=== PATIENT | male | born 1930 | race Caucasian/White ===

== ENCOUNTER 2017-01-25 23:46 | Inpatient (IN) | payer OTHER, MEDICARE ==
[~2017-01-25] VITALS: Ht 188 cm; Wt 112.9 kg
--- NOTE | ~2017-01-25 | CON ---
[facility] 86 [facility] [address] ROOM: [place] [address] LOCATION: GPCU ADMIT DATE: 01/26/2017 Consultation DISCHARGE DATE: 02/01/2017 FAMILY PHYSICIAN: Joby Grossman MD ATTENDING PHYSICIAN: Jose Ramon Ackerman DATE OF CONSULTATION: 01/31/2017 REFERRING PHYSICIAN: LEANDER ZEPEDA (GASTRO) LOCATION: [place] [address]. This is a palliative care referral for patient and family support, POLST form, and goals of care. HISTORY OF PRESENT ILLNESS: This 86-year-old male was admitted on 01/26/2017 with complaints of melena. He currently lives in a intermediate in [place]. He is confused due to his dementia. The patient was seen by GI, Dr. Leander Zepeda. The patient was started on a Protonix drip and given some RBC to bring up his hemoglobin of 6.6. Currently, the patient is not having further bloody stools. He is very hard of hearing and unable to recall history due to his dementia. PAST MEDICAL HISTORY: Benign prostatic hypertrophy; type 2 diabetes; hypertension; dementia; coronary artery disease; COPD, not on oxygen; hypothyroidism. ALLERGIES: TO GABAPENTIN, BACTRIM, DILANTIN, AND NSAIDS, UNKNOWN REACTIONS. SOCIAL HISTORY: Lived with his significant other for 35 years. He has 2 sons. The patient currently resides in [place] [facility]. No current smoking or alcohol use. CURRENT MEDICATIONS: See MAR. REVIEW OF SYSTEMS: A complete review of systems was done and is negative, except as those mentioned in the HPI. PHYSICAL EXAMINATION: VITAL SIGNS: Temp 98.1 axillary, heart rate 89, respirations 18, blood pressure 129/66, O2 saturation 95%. He is 6 feet 2 inches and weighs 250 pounds with a BMI of 32.6. PATIENT'S NAME: [facility] AGE: 86 Y [address] ROOM: [place] [address] LOCATION: GPCU ADMIT DATE: 01/26/2017 Consultation DISCHARGE DATE: 02/01/2017 FAMILY PHYSICIAN: Joby Grossman MD ATTENDING PHYSICIAN: Jose Ramon Ackerman GENERAL: Alert to name, very hard of hearing, in no acute distress. SKIN: Warm and dry. Color pale. HEENT: Head is normocephalic and atraumatic. Sclerae nonicteric. Conjunctivae, pale pink. Mouth is pink and moist without exudate. RESPIRATORY: Clear to auscultation bilaterally. CARDIAC: S1, S2 without murmurs or bruits. 1+ lower extremity edema. No JVD. ABDOMEN: Soft and rounded. Positive bowel tones. No hepatosplenomegaly. NEUROLOGICAL: Grossly intact. MUSCULOSKELETAL: Appropriate range of motions. EXTREMITIES: No cyanosis or deformities. Palliative Performance Scale is 50%, mainly sitting and lying, unable to do extensive work, considerable assistance needed. Intake is normal. Conscious level is drowsy with some confusion. IMPRESSION: Dysphagia, aspiration, weakness, and fatigue. PLAN: 1. Discussion of chronic condition. Met with significant other who is the medical power of c java developer. She has a very good understanding of the patient's current condition, history of COPD, very hard of hearing, blind, sees very little, dysphagia, aspirating on thin liquids, possible aspiration pneumonia, and history of dementia. Discussed goals of care. She states that they have talked about it in the past, and he has told her he would not want aggressive life-sustaining measures, no CPR ventilation or feeding tube or dialysis. Discussed the POLST form (Physician's Order for Life-Sustaining Treatment form) and criteria for hospice with aspiration risk. She states that she would not want him to be rehospitalized for aspiration pneumonia and would consider just oral antibiotics, but if he had a recurrent GI bleed, she would want him to have the bleeding stopped. Currently, she is in favor of having hospice at the intermediate in [place], but she will talk with Diana from [facility] about the hospice potential. We will fax information to the [facility]. POLST form was completed with the patient's wishes in place. We will send form with the patient. I gave a copy to significant other, her name is Patricia Andrade. 2. Code status and advance directive: The patient is a do not resuscitate, copy of advanced directive is on the chart naming his power of c java developer. POLST form was discussed and completed. 3. Recommendations: Dysphagia,slow hand feeding, up in chair and chin tuck. Weakness and fatigue, currently he is having physical therapy done. We will continue to support patient and family. Possible discharge back to intermediate in the morning. PATIENT'S NAME: LARRY IBRAHIM [facility] AGE: 86 Y [address] ROOM: [id number] [place], [place] [address] [facility] ADMIT DATE: 01/26/2017 Consultation DISCHARGE DATE: 02/01/2017 FAMILY PHYSICIAN: Joby Grossman MD ATTENDING PHYSICIAN: Jose Ramon Ackerman Total time was 55 minutes with 45 minutes for counseling and coordination of care. Thank you for allowing me to assist this patient and family. SHELL RAGSDALE NP FOR MD ABBY JAY/sun /[id number] d: 02/02/17 1455 t: 02/09/17 1620, CONSULTATION REPORT
--- NOTE | ~2017-01-25 | CON ---
[facility] 86 Y [address] ROOM: [place] [address] LOCATION: GPCU ADMIT DATE: 01/26/2017 Consultation DISCHARGE DATE: FAMILY PHYSICIAN: Joby Grossman MD ATTENDING PHYSICIAN: MAXIMILIAN SHIPMAN DATE OF CONSULTATION: 01/26/2017 REFERRING PHYSICIAN: LEANDER QUARLES (GASTRO) REASON FOR CONSULTATION: Melena stool. HISTORY OF PRESENT ILLNESS: This is an 86-year-old male, who [facility] jail. He was found to be confused due to delirium from his underlying dementia. The patient is unable to provide any information due to his mental status. It appears that while being at the jail for approximately 2 days, he has had black melena tarry stools. This began on Monday with one episode and followed by 2 episodes yesterday. The patient appeared very pale and weak as he was brought into the emergency room at an outside facility. At that facility, he was found to have a hemoglobin of 6.6 and hematocrit of 20.6. The patient was then transferred to [facility] for further evaluation. All information was gathered from the medical record due to the patient's mentation as well as no family at bedside. The patient was seen and examined. Again due to his mentation, he cannot appropriately answer questions. He appears to be agitated in bed and incoherent. Per medical record, he was given one unit of blood prior to arrival as another unit of blood was scheduled. PAST MEDICAL HISTORY: 1. Benign prostatic hypertrophy. 2. Type 2 diabetes. 3. Hypertension. 4. Coronary artery disease. 5. COPD, not on oxygen. 6. Dementia. 7. Hypothyroidism. PAST SURGICAL HISTORY: Unknown secondary to the patient's mental status. SOCIAL HISTORY: The patient resides at a jail with known dementia. He does have a significant other as well as 2 sons though any other information is unknown secondary to the patient's mental status. PATIENT'S NAME: [facility] AGE: 86 Y [address] ROOM: [place] [address] LOCATION: GPCU ADMIT DATE: 01/26/2017 Consultation DISCHARGE DATE: FAMILY PHYSICIAN: Joby Grossman MD ATTENDING PHYSICIAN: MAXIMILIAN SHIPMAN FAMILY HISTORY: Unknown again secondary to the patient's mental status. ALLERGIES: FROM THE [facility] PAPERWORK SHOWED: 1. GABAPENTIN. 2. BACTRIM. 3. DILANTIN. 4. NSAIDS. CURRENT MEDICATIONS: Please refer to the medication administration record. REVIEW OF SYSTEMS: A 10-point review of systems was completed. All were negative except for those identified in the history of present illness. PHYSICAL EXAMINATION: GENERAL: The patient is an 86-year-old male, who appears to be in no acute distress. VITAL SIGNS: Temperature 97.6, pulse of 108, respirations 24, blood pressure 133/61, and oxygen saturation is 96% on 2 L. SKIN: Pale, warm, and dry. No jaundice. HEENT: Head is normocephalic and atraumatic. Pupils are equal, round, and reactive to light. Sclerae are clear. Nonicteric. Oral mucosa is pink and moist. No thyromegaly. NECK: Soft and supple. CARDIOVASCULAR: Regular normal S1, S2. RESPIRATORY: Respirations even and unlabored. LUNGS: Clear to auscultation. Slightly diminished in the bilateral lobes. ABDOMEN: Soft, round, and nontender per nonverbal cues secondary to his mentation status. Bowel sounds positive x4 quadrants. MUSCULOSKELETAL: No muscle weakness or atrophy. EXTREMITIES: No clubbing, cyanosis, or edema. NEUROLOGIC: Grossly nonfocal. LABS AND DIAGNOSTICS: An ABG is currently pending at this time. White blood cell count 8.4, hemoglobin 8.0, hematocrit of 23.9, and platelets of 110. Chemistry panel includes a glucose of 185, BUN of 125, creatinine of 2.5, sodium 143, potassium of 4.3, chloride 104, CO2 of 30. Liver enzymes have all been within normal limits. PT 12.5, INR is 1.19, PTT of 23. ASSESSMENT AND PLAN: PATIENT'S NAME: LARRY IBRA[facility]IM [facility] AGE: 86 Y [address] ROOM: [id number] [place], [place] [address] LOCATION: GPCU ADMIT DATE: 01/26/2017 Consultation DISCHARGE DATE: FAMILY PHYSICIAN: Joby Grossman MD ATTENDING PHYSICIAN: MAXIMILIAN SHIPMAN Again, this is an 86-year-old male, who was transferred with melena stool x2 days. Unfortunately due to his mentation status, all information was gathered from the medical records as the patient is incoherent when I asked questions. He currently is on Protonix as these should be continued. This was discussed in depth with Dr. Bravo due to the patient's encephalopathy and mental status. It is being discussed at this point of possible intubation prior to an upper endoscopy for evaluation of the GI bleed. The patient was admitted as a DNR and DNI though this will be discussed with his significant other. Further recommendations to be given over the patient's course of his hospitalization. Thank you for this consult. CATHERINE GATES APRN FOR J KATHY QUARLES MD MMF/modl /[id number] d: 01/27/17 1307 t: 03/10/17 0844, CONSULTATION REPORT
--- NOTE | ~2017-01-25 | ECHO ---
Transthoracic Echocardiography Report (TTE) Demographics Patient Name LARRY IBRAHIM Date of Study 01/26/2017 Patient Number [id number] Visit Number [id number] Date of 1930 Room Number G6303 Accession Number [id number] Gender Male Age 86 year(s) Referring Chauncey Baker Poultry Boner Stephanie Borjas Physician [facility] Meka Mahan Physician Interpreting [employer] Financial Coordinator Physician Supervising Ordering Physician Meka Walker MD, MD/MLP Nurse Stress Women'S Apparel Salesperson Conclusions Contractility Score Summary Normal Left Ventricular contractility was noted. Summary Technically difficult exam due to combative patient. Normal LV size and systolic function. The estimated left ventricular ejection fraction is 60-65%. Mild concentric left ventricular hypertrophy. Diastolic assessment reveals Grade I diastolic dysfunction. Mildly dilated right ventricle with normal RV systolic function. Mild tricuspid regurgitation by color Doppler. There is severe pulmonary hypertension. The pulmonary pressure (RVSP) is 68 mmHg. Procedure Type of Study TTE procedure:2D Echocardiogram, M-Mode, Doppler , Color Doppler. Procedure Date Date: 01/26/2017 Start: 07:51 AM Study Location: Inpatient Portable Technical Quality: Limited visualization due to combative patient. Indications:Elevated Troponin. Appropriate Use Criteria: 9 Patient Status: Routine HR: 82 bpm BP: 162/67 mmHg M-Mode/2D Measurements LV Diastolic Dimension: 4.85 cm LV Systolic Dimension: 2.98 cm LV Septum Diastolic: 1.09 cm LV PW Diastolic: 1.08 cm AO Root Dimension: 3 cm Cardiac Output: 6.15 l/min LA Dimension: 3.1 cm LVOT: 2 cm LVOT VTI: 23.9 cm RV Base: 3.93 cm LV Stroke volume: 75.05 ml RV Length: 5.92 cm TAPSE: 1.87 cm TDI-S': 12.4 cm/s Doppler Measurements AV Peak Velocity: 1.35 m/s MV Peak E-Wave: 1.04 m/s AV Peak Gradient: 7.29 mmHg MV Peak A-Wave: 1.34 m/s AV Mean Gradient: 4 mmHg MV E/A Ratio: 0.78 LVOT Peak Velocity: 1.03 m/s MV Deceleration Time: 206 msec TR Velocity:3.87 m/s PV Peak Velocity: 1.55 m/s TR Gradient:59.91 mmHg PV Peak Gradient: 9.61 mmHg Estimated RAP:8 mmHg Estimated PASP: 67.91 mmHg Estimated RVSP: 68 mmHg A' Septal Velocity: 0.12 m/s E' Septal Velocity: 0.08 m/s A' Lateral Velocity: 0.08 m/s E' Lateral Velocity: 0.09 m/s Findings Left Ventricle The left ventricle is normal in size . Mild concentric left ventricular hypertrophy. Diastolic assessment reveals Grade I diastolic dysfunction. Right Ventricle RV is mildly dilated with normal RV systolic function. Left Atrium Normal left atrial size. Right Atrium RA is grossly normal in size. IVC imaging is consistent with normal RA pressures. Mitral Valve Mild mitral annular calcification. Aortic Valve The aortic valve is moderately sclerotic. Tricuspid Valve Mild tricuspid regurgitation by color Doppler. There is severe pulmonary hypertension. The pulmonary pressure (RVSP) is 68 mmHg. Pulmonic Valve The pulmonic valve is not well visualized. Pericardial Effusion Trivial pericardial effusion. Epicardial fat pad noted. Miscellaneous Visualized portions of the aortic root. Unable to adequately visualize the ascending aorta. Pleural Effusion No evidence of pleural effusion. Contractility Score LV regional wall motion:(0-Non visualized 1-Normal 2-Hypokinesis 3-Akinesis 4-Dyskinesis 5-Aneurysm) Signature dtt: JOHN BARRETO dtd: 01/26/17 0751 Physician Self Edit
--- NOTE | ~2017-01-25 | DS ---
PATIENT'S NAME: LARRY IBRAHIM [facility] AGE: 86 Y [address] ROOM: [address] [address] LOCATION: GPCU ADMIT DATE: 01/26/2017 Discharge Summary DISCHARGE DATE: 02/01/2017 FAMILY PHYSICIAN: Joby Grossman MD ATTENDING PHYSICIAN: Jose Ramon Ackerman FINAL DIAGNOSES: 1. Acute blood loss anemia from presumed from a presumed gastrointestinal bleed. 2. Chronic obstructive pulmonary disease exacerbation. 3. Chronic aspiration. 4. Acute metabolic encephalopathy. 5. Diabetes mellitus type 2, insulin using. 6. Acute kidney injury on chronic kidney disease. 7. Hypernatremia. Please see the history and physical dictated by Dr. Ackerman for details of admission. In short, the patient was admitted with increased confusion on his baseline delirium and with an acute blood loss anemia. LABORATORY DATA ON ADMISSION: ABG: PH was 7.42, pCO2 of 48, PO2 of 115, and was on 2 L per nasal cannula. Lactate on admission was 3.9, repeat was 2.0. Sodium on admission was 142, got as high as 152 and most prior to discharge it was 141. Potassium on admission was 4.8, this remained stable and was 4.2 at discharge. BUN on admission was 146 and did gradually decline, most prior to discharge it was 28. Creatinine on admission was 2.8, this did gradually decline and at discharge was 1.4. Bilirubin on admission was 1 total bilirubin. Alkaline phosphatase on admission was 29, AST 17, ALT 15. Troponin on admission was 0.06, repeat was 0.056. ProBNP was 606. Hemoglobin A1c was 7. TSH was 0.858. White blood cell count on admission was 7.1, most prior to discharge it was 6.9. Hemoglobin on admission was 7.4. He remained in the high 7's to low 8 range, most prior to discharge was 8.3. Platelet count on admission was 138, discharge 165. Procalcitonin on admission was 0.22. Urinalysis on admission showed 10-20 whites, 20-50 reds. Urine sodium on the 27th was 69. Urine osmo on the 27th was 437. RADIOLOGY DATA: A CT scan of the head on admission, due for the confusion was limited due to the motion. Ultrasound of the kidneys showed benign renal cyst and changes of mild chronic kidney disease. Chest x-ray on the showed bibasilar atelectasis. Chest x-ray on the most prior to discharge showed improvement. CARDIOVASCULAR DATA: Echocardiogram showed that his ejection was 60%-65%. He had mild concentric left ventricular hypertrophy, grade 1 diastolic dysfunction. PATIENT'S NAME: LARRY IBRAHIM [facility] AGE: 86 Y [address] ROOM: [place] [address] LOCATION: GPCU ADMIT DATE: 01/26/2017 Discharge Summary DISCHARGE DATE: 02/01/2017 FAMILY PHYSICIAN: Joby Grossman MD ATTENDING PHYSICIAN: Jose Ramon Ackerman [facility] COURSE: The patient was admitted with a diagnosis of confusion. He was also noted to have a drop in his hemoglobin and to be in acute kidney failure. The patient was admitted, put on IV Protonix drip. An ultrasound of his kidney was obtained. GI was asked to see the patient. His lab was monitored closely. He did receive 1 unit of packed red blood cells. A CT scan was done to rule out any intracranial pathology. He was started on sliding scale insulin for his blood sugars. He was given aggressive IV hydration. The patient did not have the capacity to make his own decisions. His power of commercial attorney, Archana, did make the decisions for him. She was kept in the loop in terms of his conditions. Gastroenterology did see him, and they were concerned about his degree of encephalopathy and were reluctant to proceed with an EGD at that time. Renal was asked to see the patient. He was given aggressive IV hydration. His sodium did begin to rise and adjustments in his fluids were made. His power of commercial attorney did feel that since there was no more evidence of active blood loss, that she would like to hold off on an EGD at this time. His sodium did continue to rise. It was changed and given free water flushes. Speech was asked to see him. He did have overt aspiration. It was recommended that he have an alternative source of nutrition. He did require IV D5W to help bring his sodium finally under better control. He had been on IV prednisone and had been started on IV antibiotics for presumed COPD exacerbation or aspiration pneumonia. These medicines were weaned and then eventually switched to oral medications. He was given sliding scale insulin. There were long discussions with his significant other as to how aggressive the care she wanted to be. I did have Palliative Care work with her to fill out a POLST form, and there was some consideration for hospice. It was felt that the patient was stable and could be discharged to the [facility]. He is on comfort measures with the consideration for hospice. His diet is nectar-thick liquids with pureed foods. His significant other is well aware that the recommendation was for alternative nutrition and that he is at risk for aspiration pneumonia. She is accepting of this. This was discussed with her on numerous occasions during the hospital stay. He is weightbearing as tolerated and to have PT and OT. O2 to keep his sats greater than 90%. Accu-Chek q.a.c. and h.s. MEDICATIONS: 1. Tylenol 650 mg every 4 hours as needed, 1000 mg twice daily, and Tylenol 650 mg per rectum every 4 hours p.r.n. increased temp or pain. 2. Augmentin 875 for 7 days. Last dose will be February 06. 3. Peridex mouthwash three times daily p.r.n. dry or painful mouth. 4. Levemir 16 units subcu daily. 5. Moderate regular sliding scale insulin. 6. Synthroid 50 mcg daily. 7. Namenda 10 mg twice daily. 8. Protonix 40 mg twice daily. PATIENT'S NAME: LARRY IBRAHIM [facility] AGE: 86 Y [address] ROOM: [place] [address] LOCATION: GPCU ADMIT DATE: 01/26/2017 Discharge Summary DISCHARGE DATE: 02/01/2017 FAMILY PHYSICIAN: Joby Grossman MD ATTENDING PHYSICIAN: Jose Ramon Ackerman 9. Prednisone 20 mg twice daily through February 04, then February 05 through February 08 20 mg daily, then February 09 through February 12 15 mg daily, then February 13 through February 16 10 mg daily, and then 5 mg daily. 10. Flomax 0.4 mg daily. 11. Depakene 1000 mg twice daily. This was switched to the short-acting formulation. 12. Ipratropium/albuterol inhaled every 4 hours as needed. 13. Dulera 2 puffs inhaled twice daily. 14. Haldol 1 mg every 12 hours as needed. 15. Aspirin 81 mg to restart in 2 weeks. 16. Dulcolax suppositories per rectum q.24 hours as needed. 17. Calcium 600 mg daily. 18. Proscar 5 mg at bedtime. 19. Isordil 5 mg 3 times daily. 20. Milk of magnesia 30 mL as needed for constipation. 21. Zofran 4 mg sublingual every 8 hours as needed for nausea and vomiting. 22. Zoloft 50 mg daily. 23. Senna 8.6 mg daily. 24. Nystatin, apply to his scrotum and groin every day as needed for rash. 25. Robitussin liquid 100-200 mg every 6 hours p.r.n. cough. 26. Tylenol No. 3 Elixir 1 teaspoon p.o. every q.3 hours p.r.n. pain. PROGNOSIS: Overall prognosis at discharge is fair. This was discussed at length with his POAArchana. BARBY JIANG MD LAW/modl /[id number] CC: Joby Grossman MD d: 02/02/17 0410 t: 02/03/171930, DISCHARGE SUMMARY
--- NOTE | ~2017-01-25 | HP ---
[facility] 86 [facility] [address] ROOM: [place] [address] LOCATION: GPCU ADMIT DATE: 01/26/2017 History & Physical DISCHARGE DATE: FAMILY PHYSICIAN: Joby Grossman MD ATTENDING PHYSICIAN: MAXIMILIAN SHIPMAN DATE OF SERVICE: CHIEF COMPLAINT: Melena. HISTORY OF PRESENT ILLNESS: This is an 86-year-old halfway male resident, who currently is confused due to delirium from his underlying dementia. I called the halfway and got the story. The story is that the patient since yesterday has been having 2 episodes of melena and today has a few more episodes, but they cannot really tell me how many times. Today, the patient looked pale and was feeling weak in general, and then the patient was brought to the ER from outside facility where he was found to have a hemoglobin at 6.6, hematocrit 20.6, and the patient was transferred here for further care. During the transfer, I instructed the outside facility to give IV Protonix bolus and then followed by drip. The patient also got 1 unit of blood already before arrival here. Further history cannot be obtained given that the patient is currently confused from delirium from his underlying dementia. REVIEW OF SYSTEMS: As mentioned in the history of present illness. All other systems reviewed and negative except those mentioned in the history of present illness. PAST MEDICAL HISTORY: 1. Benign prostatic hypertrophy. 2. Type 2 diabetes. 3. Hypertension. 4. Dementia. 5. Coronary artery disease, details are not clear. We do not have enough file documentation. 6. COPD, not on oxygen. 7. Dementia. 8. Hypothyroidism. ALLERGIES: FROM THE HALFWAY PAPERWORK, THE PATIENT HAS ALLERGY TO GABAPENTIN, BACTRIM, DILANTIN, AND NSAID. UNKNOWN REACTION. SOCIAL HISTORY: PATIENT'S NAME: ALEXANDRIA [facility] AGE: 86 Y [address] ROOM: [place] [address] LOCATION: GPCU ADMIT DATE: 01/26/2017 History & Physical DISCHARGE DATE: FAMILY PHYSICIAN: Joby Grossman MD ATTENDING PHYSICIAN: MAXIMILIAN SHIPMAN Can not be obtained from the patient given the patient is in delirium, and the medical records in [facility] could not be obtained. PAST SURGICAL HISTORY: Can not be obtained from the patient given the patient is demented and in delirium right now, and the last H and P can not be obtained either. FAMILY HISTORY: Can not be obtained for the same reason. HOME MEDICATIONS: Will be reconciled by the staff. Currently is being reconciled. PHYSICAL EXAMINATION: VITAL SIGNS: Temperature 98, blood pressure 120/80, heart rate 90, respiration 16, saturation 99% on room air. GENERAL APPEARANCE: The patient is drowsy and lethargic and does not answer any questions. The patient is alert to verbal and to sternal rub but does not give any significant history. HEENT: Anicteric sclerae. Pupils equally round and reactive to light. Cannot assess extraocular muscle movement given that the patient does not follow commands at the moment due to delirium. Nasal turbinates normal bilaterally. Moist oral mucosa. NECK: No JVD. No neck stiffness. CARDIOVASCULAR: Regular rate and rhythm. Normal S1, S2. No murmur, no rubs, no gallops. RESPIRATORY: Clear. ABDOMEN: Obese, soft, nontender, nondistended, bowel sounds present, no mass. EXTREMITIES: +1 pitting edema in bilateral lower extremities. SKIN: No ulcer, no rash, no cyanosis. NEUROLOGIC: Can not be performed given the patient is in delirium. Does not follow commands. Babinski negative. No obvious facial droop. MUSCULOSKELETAL: No joint pain. No muscle pain. Range of motion intact. LABORATORY DATA: Lactic acid 3.9. Troponin, CPK, and CK-MB are pending. White blood cells 7.1, hemoglobin 7.4, hematocrit 22.9, MCV 97.4, platelet 130. Basic metabolic panel is pending. From the outside facility, the basic metabolic panel showed glucose 154, BUN 138, creatinine 3.11, sodium 139, potassium 5.0, GFR 19. Liver function testing at our labs are pending, from the outside facility today show total bilirubin 0.2, ALT 17, AST 15, alkaline phosphatase 26. INR, PTT pending in our lab. A1c is pending. UA not yet collected. TSH and procalcitonin pending. PATIENT'S NAME: LARRY IBRAHIM [facility] AGE: 86 Y [address] ROOM: [place] [address] [facility] ADMIT DATE: 01/26/2017 History & Physical DISCHARGE DATE: FAMILY PHYSICIAN: Joby Grossman MD ATTENDING PHYSICIAN: MAXIMILIAN SHIPMAN IMAGING STUDY: None were performed from the outside facility. EKG performed here on arrival shows sinus tachycardia, heart rate 101, NH 191 milliseconds, QTc 421 milliseconds, QRS 121 milliseconds. No acute ischemic changes. ASSESSMENT AND PLAN: 1. Regarding his acute blood loss anemia in the setting of upper gastrointestinal bleeding from melena: N.p.o. GI consult in the morning for endoscopy. Blood type and screening. Keep the hemoglobin more than 8 given that he has history of coronary artery disease per medical records. I will give him one more unit right now blood. Check hemoglobin and hematocrit 1 hour after transfusion is finished. Continue Protonix drip. IV fluids normal saline low-rate maintenance 50 mL/h. Keeping on oxygen nasal cannula. Watch closely for volume overload. Hold blood pressure medications. Further plan depends on clinical course. 2. Regarding his type 2 diabetes: Check A1c and put on sliding scale insulin regular insulin low-dose q.6 hours. 3. Regarding his acute kidney injury: Currently, our creatinine and GFR are pending. Based on the outside facility today show creatinine of 3.11, GFR of 19. Could be prerenal in the setting of gastrointestinal bleeding loss or decreased oral intake. The patient looks dry on examination. I will check urine electrolytes and also check a kidney ultrasound in the morning and also put a Saenz catheter given that he has benign prostatic hypertrophy, this could rule out postobstructive cause of acute kidney injury. Normal saline maintenance fluids. Check renal panel again in the morning. Monitor urine output and strict in's and out's. Further plan depends on clinical course. 4. Regarding his chronic obstructive pulmonary disease: Currently not in flare. Nebulization p.r.n. 5. Regarding his dementia: Continue home medication. Currently, the list is being reconciled. 6. Regarding his hypothyroidism: Check TSH and modify dose of levothyroxine if necessary. Currently, home medications are being reconciled. 7. Regarding his hypertension: Hold the blood pressure medications in the setting of upper gastrointestinal bleeding. 8. Deep venous thrombosis prophylaxis: Compression devices. 9. Code status: DNR/DNI. Time spent on the day of admission 45 minutes including chart review, interviewing the patient, examining the patient, calling halfway to get the history, addressing all the questions and concerns that the nurses had, and going over the plan of care with the patient and nurses. Further plan depends on clinical course and further plan be made by medical provider who will be taking over the care on 01/26/17 at 8 AM when shift changes. For his delirium. I will also order a delirium set, and also check a CT of PATIENT'S NAME: LARRY IBRAHIM [facility] AGE: 86 Y [address] ROOM: [place] [address] LOCATION: [facility] ADMIT DATE: 01/26/2017 History & Physical DISCHARGE DATE: FAMILY PHYSICIAN: Joby Grossman MD ATTENDING PHYSICIAN: MAXIMILIAN SHIPMAN the brain without contrast to rule out any intracranial process. Put him on the soft restraints on both wrists given that he is pulling out the IV right now. Can use Seroquel or Haldol p.r.n. to control his delirium. Further plan depends on clinical course. MAXIMILIAN SHIPMAN MD CC/modl /[id number] D: [id number] T: [id number] HISTORY & PHYSICAL
--- NOTE | ~2017-01-25 | CON ---
PATIENT'S NAME: LARRY IBRAHIM [facility] AGE: 86 Y [address] ROOM: [address] [address] LOCATION: GPCU ADMIT DATE: 01/26/2017 Consultation DISCHARGE DATE: FAMILY PHYSICIAN: Joby Grossman MD ATTENDING PHYSICIAN: MAXIMILIAN SHIPMAN DATE OF CONSULTATION: 01/26/2017 REFERRING PHYSICIAN: LEANDER SKY) ROBINA REASON FOR CONSULTATION: PAMELA on CKD. HISTORY OF PRESENT ILLNESS: An 86-year-old, long-term resident, with history of baseline dementia, type 2 diabetes, hypertension, coronary artery disease, COPD, BPH, and CKD stage III with a baseline creatinine of 1.2-1.4, transferred from an outside hospital to [facility] with GI bleed. Creatinine at the time of transfer from outside hospital was 4 with BUN around 50. Nephrology consultation has been called for PAMELA on CKD with worsening azotemia. As per the chart, the patient had underlying dementia, but in the long-term, he was apparently active and was walking around; however for the last few days, the patient started to have melena at least 3 or 4 episodes in the last couple of days. He appears to be pale and feeling weak, transferred to [facility] ER and found to have a hemoglobin of 6.6, creatinine of 4, and BUN of 150. The patient was transferred to [facility] for further care. During the transfer, the patient got IV Protonix bolus and also got couple of units of blood after transfer. During my evaluation, the patient appeared to be completely confused, is not responding to at least voice call, withdraws to pain sensation. The patient is getting aggressive IV hydration as per the primary team and is not intubated, currently saturating at 95% on 1-2 L. Chest appears to be clear. The patient has made about 1600 mL of urine since the patient has been transferred. Creatinine which was 2.8 on the 4th lab test here, improved to 2.1 this afternoon. He also has had a history of PAMELA with hyperkalemia couple of years ago and was admitted to [facility] at that time. REVIEW OF SYSTEMS: Could not be obtained due to mental status. PAST MEDICAL HISTORY: 1. Hypertension. 2. Diabetes mellitus. 3. BPH. 4. Dementia. 5. Coronary artery disease. 6. COPD. 7. Hypothyroidism. ALLERGIES: FROM LONGTERM PAPERWORK, THE PATIENT HAS ALLERGY TO GABAPENTIN, BACTRIM, DILANTIN, NSAIDS, UNKNOWN REACTION. SOCIAL HISTORY: Unknown at this point given the mental status. PAST SURGICAL HISTORY: Unknown at this point given the patient's mental status. FAMILY HISTORY: Could not be obtained because of mental status.PATIENT'S NAME: LARRY IBRAHIM [facility] AGE: 86 Y [address] ROOM: [place] [address] LOCATION: GPCU ADMIT DATE: 01/26/2017 Consultation DISCHARGE DATE: FAMILY PHYSICIAN: Joby Grossman MD ATTENDING PHYSICIAN: MAXIMILIAN SHIPMAN [place] MEDICATIONS: As per the NOV. PHYSICAL EXAMINATION: VITAL SIGNS: Blood pressure 130/60, heart rate 90 to 110, respiratory rate 18, and saturation was 95% on 1-2 L. GENERAL: Elderly male, demented, not responding to voice command. HEAD: Dry mucous membranes. Bilateral PERRLA. NECK: No JVD, thyromegaly or lymphadenopathy. CVS: S1 and S2 normal, regular rate and rhythm. No murmur, rub, gallop. CHEST: Bilateral air entry equal. No wheeze or rales. ABDOMEN: Soft, nontender, nondistended. Bowel sounds present. EXTREMITIES: No cyanosis, clubbing, jaundice. 1+ dependent edema. MUSCULOSKELETAL: No limitation of range of motion. SKIN: No pallor, cyanosis, icterus. ASSISTANT ACCOUNT EXECUTIVE: Confused, not responding to voice command, and withdraws to painful stimulus. LABORATORY DATA: WBC 7.1, hemoglobin 7.4, platelet 130. Lactic acid 3.9. Chemistry: Sodium 146, potassium 4.4, chloride 108, bicarbonate 32, BUN 110, creatinine 2.1, calcium 8.5, and glucose 160. Total protein 6.8, albumin 3.2, AST and ALT 17 and 15, alkaline phosphatase 29, total bilirubin 1, direct bilirubin 0.2. Anion gap 10.4. ASSESSMENT/PLAN: 1. Acute kidney injury on chronic kidney disease, stage III. Baseline creatinine is around 1.2-1.4 at least as per the hospital record from 2014. Creatinine went up to 4 yesterday at outside facility, 2.8 on discharge, now is 2.1, has made significant amount of urine on conservative management. A possible etiology is ATN versus prerenal. We will continue on gentle IV hydration. We may switch the patient on normal saline as the patient has significant metabolic alkalosis at this point, which cannot be corrected without giving chloride-containing solution. Please send UA, urine osmolality, urine sodium, potassium, creatinine, and also do a renal ultrasound to rule out any obstructive etiology. Strict intake and output and daily standing weight if possible. We do believe the creatinine should improve with gentle volume expansion unless there is significant advanced kidney disease at baseline. 2. Gastrointestinal bleed. Has not had any bowel movement since the patient has been transferred here. The patient got 2 units of PRBCs transfusion here, currently hemoglobin is 7.7. Primary team is managing the case. Plan for a possible EGD as per GI tomorrow; however, in absence of intubation and with altered mental status, doing an EGD might be challenging. 3. Altered mental status, query metabolic encephalopathy, unlikely to have a contribution from kidney, although there is mild acute kidney injury. GI is on board, possible for an EGD tomorrow, but as explained above, might be challenging in the absence of intubation. PATIENT'S NAME: LARRY IBRAHIM [facility] AGE: 86 Y [address] ROOM: [place] [address] LOCATION: GPCU ADMIT DATE: 01/26/2017 Consultation DISCHARGE DATE: FAMILY PHYSICIAN: Joby Grossman MD ATTENDING PHYSICIAN: MAXIMILIAN SHIPMAN 4. Disproportionate rise of BUN. I believe this BUN rise is secondary to GI bleed and not related to the renal insufficiency; however, it has started to improve since the patient has been transferred here and no more further episodes of GI bleed. We do believe with conservative management, the BUN should come down. No need for any renal replacement therapy at this current point. Thank you for allowing me to participate in this patient's care. We will closely monitor the patient's progress along with you. CASSIDY ROIBN MD /modl /[id number] d: 01/26/172217 t: 01/29/171957, CONSULTATION REPORT
[~2017-01-25 23:46] MED LIST: AMBIEN5 MG PO; ASPIRIN EC81 MG; ASPIRIN EC81 MG PO; BACTRIM DS1 TAB; CALCIUM600 MG PO; COLACE100 MG PO; DELTASONE5 MG PO; DEPAKOTE ER250 MG PO; DULCOLAX10 MG R; DUONEB INH; FLOMAX0.4 MG PO; HALDOL1 MG PO; HEALTHY EYES C1 EACH PO; ISOSORBIDE MONO10 MG PO; LISINOPRIL; MAGNESIUM500 MG PO; MILK OF MA400 MG/5 M PO; NAMENDA XR21 MG PO; NORVASC2.5 MG PO; OXYCODONE; PROSCAR5 MG PO; SYNTHROID50 MCG PO; TYLENOL EXTRA500 MG PO; TYLENOL325 MG PO; ZOFRAN ODT4 MG SL; ZOLOFT50 M1 PO
[2017-01-26 02:14] LABS: BASOPHIL % 0.1 %; EOSINOPHIL % 0.1 %; HEMATOCRIT 22.9 % (33.0-50.0); IMMATURE GRANULOCYTE % 0.6 %; LYMPHOCYTE # 1.3 K/uL (0.8-4.0); LYMPHOCYTE % 18.9 %; MCHC 32.3 gm/dL (32.0-36.5); MCV 97.4 fl (83.0-98.0); MONOCYTE # 1.2 K/uL (0.0-1.0); MONOCYTE % 17.5 %; MPV 9.6 fl (9.4-12.4); NEUTROPHIL # (ANC) 4.4 K/uL (1.4-9.0); NEUTROPHIL % 62.8 %; NRBC % 0 /100WBC (0-0.00); PLATELET COUNT 130 K/uL (150-450); RDW-CV 17.9 % (11.9-14.6); WBC 7.1 K/uL (4.0-11.0)
[2017-01-26 02:15] LABS: HEMOGLOBIN 7.4 g/dL (11.0-16.0); MCH 31.5 pg (27.0-34.0); RBC 2.35 M/uL (3.50-5.50)
[2017-01-26 02:33] LABS: INR - (THERAPEUTIC) 1.19 (0.92-1.07); PROTIME 12.5 SECONDS (9.8-11.4); PTT 23 SECONDS (25-32)
[2017-01-26 02:39] LABS: ALBUMIN 3.1 gm/dL (3.5-5.0); ALT 17 IU/L (12-78); ANION GAP 18.8 (10.0-19.0); AST 16 IU/L (10-40); CALCIUM 8.5 mg/dL (8.5-10.5); CHLORIDE 102 mMol/L (96-110); CO2 26 mMol/L (22-32); CPK 172 IU/L (35-332); CREATININE 2.8 mg/dL (0.6-1.3); ESTIMATED GFR (MDRD EQUATION) 22; POTASSIUM 4.8 mMol/L (3.7-5.1); SODIUM 142 mMol/L (135-145); TOTAL BILIRUBIN 0.3 mg/dL (0.0-1.5); TOTAL PROTEIN 6.6 g/dL (6.0-8.4)
[2017-01-26 02:41] LABS: ALK PHOS 24 IU/L (33-138); BLOOD UREA NITROGEN 146 mg/dL (6-24)
[2017-01-26 03:31] LABS: BILIRUBIN URINE NEGATIVE (NEGATIVE); BLOOD URINE 10 /UL (NEGATIVE); COLOR URINE YELLOW (YELLOW); GLUCOSE URINE NEGATIVE (NEGATIVE); KETONE URINE NEGATIVE (NEGATIVE); LEUKOCYTES URINE NEGATIVE /UL (NEGATIVE); NITRITE URINE NEGATIVE (NEGATIVE); PROTEIN URINE NEGATIVE (NEGATIVE); SPEC GRAVITY URINE 1.005 (1.003-1.035); TURBIDITY URINE CLEAR (CLEAR); UROBILINOGEN URINE NORMAL (NORMAL)
[2017-01-26 04:02] LABS: EPITHELIAL URINE 0-2 #/HPF (NEGATIVE); RBC URINE RARE #/HPF (NEGATIVE); WBC URINE NEGATIVE #/HPF (NEGATIVE)
[2017-01-26 04:03] LABS: BACTERIA URINE NEGATIVE (NEGATIVE)
--- NOTE | 2017-01-26 04:23 | NUR ---
01-26-17 0115 Patient arrives to PCU per cart by EMS. Upon arrival patient is disoriented x3 and agitated. Patient is restless and does not obey commands. He is on 2L oxygen with sats in the upper 90's. Patient lives in [facility] in [place] and had been having black tarry stools x2 days when he was taken to local ER. Vitals are stable 136/62, 20, 100, 97.2 and 97% on 2L. 1 unit of blood previously given my EMS. Dr Ackerman to assess patient and write orders.
[2017-01-26] MEDS ORDERED: DRY MOUTH PO (08:27)
[2017-01-26] MEDS ORDERED: K-TAB 10MEQ10 MEQ PO (08:28)
[2017-01-26] MEDS ORDERED: SENNA8.6 MG PO (08:28)
[2017-01-26] MEDS ORDERED: LASIX80 MG PO (08:29)
[2017-01-26] MEDS ORDERED: NAMENDA10 MG PO (08:29)
[2017-01-26] MEDS ORDERED: GUAIFENESIN400 MG PO (08:29)
[2017-01-26] MEDS ORDERED: GLUCOPHAGE1000 MG PO (08:29)
[2017-01-26] MEDS ORDERED: ACETAMINOPHEN650 MG R (08:31)
[2017-01-26] MEDS ORDERED: NYSTATIN1 EAC2 TOP (08:31)
[2017-01-26] MEDS ORDERED: ROBITUSSIN100 MG/5 M PO (08:32)
[2017-01-26 08:51] LABS: INR - (THERAPEUTIC) 1.16 (0.92-1.07); PROTIME 12.2 SECONDS (9.8-11.4)
[2017-01-26 09:07] LABS: ALBUMIN 3.2 gm/dL (3.5-5.0); ANION GAP 13.3 (10.0-19.0); CALCIUM 8.6 mg/dL (8.5-10.5); CREATININE 2.5 mg/dL (0.6-1.3); POTASSIUM 4.3 mMol/L (3.7-5.1); TOTAL PROTEIN 6.8 g/dL (6.0-8.4)
[2017-01-26 09:30] LABS: HEMATOCRIT 23.9 % (33.0-50.0); MCH 31.7 pg (27.0-34.0); MCHC 33.5 gm/dL (32.0-36.5); MCV 94.8 fl (83.0-98.0); PLATELET COUNT 110 K/uL (150-450); RBC 2.52 M/uL (3.50-5.50); RDW-CV 18.1 % (11.9-14.6); WBC 8.4 K/uL (4.0-11.0)
[2017-01-26 10:20] LABS: ABSOLUTE NEUTROPHIL CT (ANC) 6.1 K/uL (1.4-9.0); LYMPHOCYTE # 0.8 K/uL (0.8-4.0); LYMPHOCYTE % 10 %; MONOCYTE # 1.4 K/uL (0.0-1.0); SEGMENTED NEUTROPHIL # 6.1 K/uL (1.4-9.0); SEGMENTED NEUTROPHIL % 72 %
[2017-01-26 10:48] LABS: BICARBONATE 30.9 mmol/L (18.0-23.0); PCO2 48 mmHg (35-45); PO2 115 mmHg (80-90)
[2017-01-26 11:20] LABS: HEMATOCRIT 24.9 % (33.0-50.0); HEMOGLOBIN 8.4 g/dL (11.0-16.0)
[2017-01-26 11:23] LABS: ANION GAP 13.2 (10.0-19.0); CALCIUM 8.5 mg/dL (8.5-10.5); CREATININE 2.2 mg/dL (0.6-1.3); POTASSIUM 4.2 mMol/L (3.7-5.1)
--- NOTE | 2017-01-26 13:16 | NUR ---
Introduced self and care management services to patient POMaikol friend/significant other Patricia and pt clifford at bedside. Patricia reports pt is [facility] and no beds at [facility] when doctor at [facility] called so transferred here. Does want [facility] to pay for his care so willing to go to [facility] in [place] if they get a bed open. We will continue to check on that for her. If no beds at [facility] then happy for him to stay here for care. She reports currently living at [facility] and [facility] is paying for his care there. She said if they decide end of life needs, would want to try to get him on hospice unit at [facility] [place] ([facility] Discussed that we will see what his DC planning needs will be, but if doesn't transfer to [facility] in [place] for acute care and [facility] skilled unit at [place] doesn't have beds they would likely contract with a hospice to see him at [facility], and too soon to know if Hospice care will be needed, may just dc back to [facility] to continue usp care if condition gets back to baseline. She voices understanding. Will keep her updated if/when [facility] in [place] gets beds open, they may not ever get a bed open for this stay and she understands that.
[2017-01-26 15:29] LABS: HEMATOCRIT 23.2 % (33.0-50.0)
[2017-01-26 15:31] LABS: HEMOGLOBIN 7.7 g/dL (11.0-16.0)
[2017-01-26 15:42] LABS: CALCIUM 8.5 mg/dL (8.5-10.5); CREATININE 2.1 mg/dL (0.6-1.3); POTASSIUM 4.4 mMol/L (3.7-5.1)
[2017-01-26 15:43] LABS: ANION GAP 10.4 (10.0-19.0)
[2017-01-26 18:27] LABS: HEMATOCRIT 23.3 % (33.0-50.0); HEMOGLOBIN 7.8 g/dL (11.0-16.0)
[2017-01-26 18:40] LABS: CALCIUM 8.7 mg/dL (8.5-10.5); CREATININE 1.9 mg/dL (0.6-1.3); POTASSIUM 4.4 mMol/L (3.7-5.1)
[2017-01-26 18:42] LABS: ANION GAP 13.4 (10.0-19.0)
--- NOTE | 2017-01-26 19:16 | NUR ---
Significant Event: Patient awakens sometimes to pain, sometimes to voice. Mumbles incoherant words. Soft wrist restraints continue for patient and staff safety. SBP 130s-150s. HR 100s-110s. RRs mid-high 20s. On 2-3L O2 per NC. Lung sounds Coarse-Wheezy. ABGs drawn. No intabation at this point. Albumin x2 today. 2450ml uop from marsh catheter. CT of head attempted today. Unsure of results at this time. Echo and Chest X-Ray done today. EGD possibly tomorrow. Protonix gtt continues at 10ml/hr. NS at 125ml/hr. Both through Rt. Wrist PIV. No stools today. Nephrology and GI consulted today. Girlfriend and family at bedside today. Lengthy talk with Dr. Bravo and charge nurse about code status. Follow up: Will continue to monitor agitation, respiratory status, and HGB. Possible EGD tomorrow.
[2017-01-26 22:15] LABS: BILIRUBIN URINE NEGATIVE (NEGATIVE); BLOOD URINE 250 /UL (NEGATIVE); GLUCOSE URINE NEGATIVE (NEGATIVE); KETONE URINE NEGATIVE (NEGATIVE); LEUKOCYTES URINE 100 /UL (NEGATIVE); NITRITE URINE NEGATIVE (NEGATIVE); PROTEIN URINE 15 mg/dL (NEGATIVE); SPEC GRAVITY URINE 1.005 (1.003-1.035); UROBILINOGEN URINE NORMAL (NORMAL)
[2017-01-26 22:16] LABS: HEMATOCRIT 24.3 % (33.0-50.0)
[2017-01-26 22:24] LABS: COLOR URINE STRAW (YELLOW); TURBIDITY URINE CLEAR (CLEAR)
[2017-01-26 22:26] LABS: RBC URINE 20-50 #/HPF (NEGATIVE)
[2017-01-26 22:29] LABS: BACTERIA URINE RARE (NEGATIVE); EPITHELIAL URINE NEGATIVE #/HPF (NEGATIVE); MUCUS URINE NEGATIVE (NEGATIVE)
[2017-01-26 22:30] LABS: CALCIUM 8.6 mg/dL (8.5-10.5); CREATININE 1.8 mg/dL (0.6-1.3); POTASSIUM 4.4 mMol/L (3.7-5.1)
[2017-01-26 22:31] LABS: ANION GAP 12.4 (10.0-19.0)
[2017-01-27 03:27] LABS: HEMATOCRIT 23.5 % (33.0-50.0)
[2017-01-27 03:35] LABS: HEMOGLOBIN 7.7 g/dL (11.0-16.0)
[2017-01-27 03:40] LABS: ANION GAP 10.2 (10.0-19.0); CALCIUM 8.9 mg/dL (8.5-10.5); CREATININE 1.7 mg/dL (0.6-1.3); POTASSIUM 4.2 mMol/L (3.7-5.1)
--- NOTE | 2017-01-27 04:16 | NUR ---
Significant Event: Patient opens eyes to name occasionally, Opens eyes spontaneously some times. Moans and groans. Can form some words but does not follow many to any commands. Lung sounds are course and wheezey. Suctioned Q4hrs and PRN. RT performed nasopharengeal suctioning with good results. Encouraged to cough frequently. VSS on 2L O2. Tachy HR: 100s-110s. Repositioned Q2hrs/PRN. Patient appears restless at times. PRN haldol given per SAS score at HS. Accuchecks Q6hrs. NPO. Saenz patent. PIVs X2 to Right wrist and AC with no complications. Follow up: Possible EGD today.
[2017-01-27 06:10] LABS: HEMATOCRIT 23.8 % (33.0-50.0); MCH 32.2 pg (27.0-34.0); MCHC 32.8 gm/dL (32.0-36.5); MCV 98.3 fl (83.0-98.0); MPV 9.5 fl (9.4-12.4); PLATELET COUNT 109 K/uL (150-450); RBC 2.42 M/uL (3.50-5.50); RDW-CV 18.9 % (11.9-14.6); WBC 6.5 K/uL (4.0-11.0)
[2017-01-27 06:12] LABS: HEMOGLOBIN 7.8 g/dL (11.0-16.0)
[2017-01-27 06:33] LABS: ALBUMIN 3.5 gm/dL (3.5-5.0); CALCIUM 8.8 mg/dL (8.5-10.5); CREATININE 1.6 mg/dL (0.6-1.3); POTASSIUM 4.1 mMol/L (3.7-5.1); TOTAL PROTEIN 6.8 g/dL (6.0-8.4)
[2017-01-27 06:34] LABS: ANION GAP 11.1 (10.0-19.0); TOTAL BILIRUBIN 0.4 mg/dL (0.0-1.5)
[2017-01-27 07:43] LABS: ABSOLUTE NEUTROPHIL CT (ANC) 4.4 K/uL (1.4-9.0); BANDED NEUTROPHIL # 0.1 K/uL (0.0-0.1); BANDED NEUTROPHILS % 1 %; LYMPHOCYTE # 0.9 K/uL (0.8-4.0); LYMPHOCYTE % 14 %; MONOCYTE # 1.2 K/uL (0.0-1.0); SEGMENTED NEUTROPHIL # 4.4 K/uL (1.4-9.0); SEGMENTED NEUTROPHIL % 67 %
--- NOTE | 2017-01-27 09:09 | NUR ---
Called Rivera, bed coordinator at [facility] in [place] [phone] to let him know patient wants to transfer to [facility] in [place] as he wants [facility] to pay for his care, Rivera took info on reason for admission (acute blood loss anemia from GI bleed and PAMELA with gastrologist and electrician supervisor airplane consults) and said that they are still full. Asked if they would call if bed opened on weekend and he said their bed coordinator tries to call and check on people but its the weekend and may not. Will talk to them on Monday to check bed availability.
[2017-01-27 11:56] LABS: HEMOGLOBIN 7.5 g/dL (11.0-16.0)
[2017-01-27 12:20] LABS: CALCIUM 8.7 mg/dL (8.5-10.5); CREATININE 1.5 mg/dL (0.6-1.3)
--- NOTE | 2017-01-27 12:56 | NUR ---
Speech Tx Note: Orders rec'd; Chart reviewed; Attempted swallow evaluation. Pt was in bed with eyes closed. Mumbled and/or nonsensical speech. Pt did not follow commands or answer simple yes/no questions. Per discussion with pt's significant other, pt has a PMHx of aspiration but at the OK he was currently on a regular diet with thin liquids. Due to pt's decreased responsiveness, did not administer any PO trials. Will reassess in the AM to determine if pt is ready for a full swallowing evaluation. Discussed with pt's RN and significant other with good understanding and agreement. Hien Allen M.A. CCC-BUILDING ENGINEER
--- NOTE | 2017-01-27 13:17 | NUR ---
Let significant other know that I talked with [facility] bed coordinator today and no beds at [facility] in [place], she is okay with that. Received call from Sharri at [facility], gave her an update of pt condition and faxed information. They will accept back and if needed, too soon to know, can accept back with Hospice, but they will have to arrange through the [facility] to get approval so just let them know, put those orders on dismissal paperwork for them to do that. If pt would have Hospice arranged before he gets back to SNF then [facility] may not pay for it. Will keep her updated.
--- NOTE | 2017-01-27 17:52 | NUR ---
Significant events: Patient is disoriented x 3. Opens eyes to pain and sound. Does not follow commands. Agitated at times. Soft wrist restraints bilateral upper extremities. D5 1/2NS discontinued this AM. Right AC IV running D5 at 200 ml/hr. Right hand IV saline locked. Protonix drip d/c today. 1 gram rocephin today. 2-3+ edema bilateral lower extremities. Heart rates in 90's. SBP's 120-150. Lungs course at beginning assessment to slightly coarse at last assessment. 2L O2. Total intake - 1887; total output 1900. Follow up: Monitor neuro status. Renal panel at 1800 - call Ray with results. Monitor BM's. Monitor HGB.
[2017-01-27 18:07] LABS: HEMATOCRIT 25.2 % (33.0-50.0); HEMOGLOBIN 8.1 g/dL (11.0-16.0); MCHC 32.1 gm/dL (32.0-36.5); MCV 99.6 fl (83.0-98.0); MPV 9.9 fl (9.4-12.4); PLATELET COUNT 97 K/uL (150-450); RBC 2.53 M/uL (3.50-5.50); RDW-CV 18.6 % (11.9-14.6); WBC 4.3 K/uL (4.0-11.0)
[2017-01-27 18:21] LABS: ALBUMIN 3.4 gm/dL (3.5-5.0); CALCIUM 8.7 mg/dL (8.5-10.5); CREATININE 1.6 mg/dL (0.6-1.3); PHOSPHORUS 3.6 mg/dL (2.5-4.9); POTASSIUM 4.5 mMol/L (3.7-5.1)
[2017-01-27 18:25] LABS: ANION GAP 10.5 (10.0-19.0)
[2017-01-27 18:50] LABS: ABSOLUTE NEUTROPHIL CT (ANC) 3.9 K/uL (1.4-9.0); BANDED NEUTROPHIL # 0.1 K/uL (0.0-0.1); BANDED NEUTROPHILS % 2 %; LYMPHOCYTE # 0.3 K/uL (0.8-4.0); LYMPHOCYTE % 6 %; MONOCYTE # 0.1 K/uL (0.0-1.0); SEGMENTED NEUTROPHIL # 3.8 K/uL (1.4-9.0); SEGMENTED NEUTROPHIL % 89 %
[2017-01-28 00:02] LABS: HEMATOCRIT 24.6 % (33.0-50.0); HEMOGLOBIN 7.7 g/dL (11.0-16.0)
[2017-01-28 00:13] LABS: CALCIUM 8.6 mg/dL (8.5-10.5); CREATININE 1.6 mg/dL (0.6-1.3); POTASSIUM 4.5 mMol/L (3.7-5.1)
[2017-01-28 00:17] LABS: ANION GAP 11.5 (10.0-19.0)
--- NOTE | 2017-01-28 05:15 | NUR ---
Significant Event: Disoriented. Arousable to voice/touch. VSS, 2L NC oxygen. Turn Q2h. Agitated in middle of the night, 1mg haldol given once. Coarse lung sounds, suction at BS. NPO. Weak cough.Saenz intact. Soft wrist restraints on per protocol. H&H q6h BMP for sodium levels. Follow up: COnt to monitor, H &H, sodium
[2017-01-28 06:38] LABS: HEMOGLOBIN 7.4 g/dL (11.0-16.0)
[2017-01-28 07:06] LABS: CALCIUM 8.3 mg/dL (8.5-10.5); CREATININE 1.6 mg/dL (0.6-1.3); POTASSIUM 4.2 mMol/L (3.7-5.1)
[2017-01-28 07:10] LABS: ANION GAP 15.2 (10.0-19.0)
[2017-01-28 17:17] LABS: HEMATOCRIT 22.5 % (33.0-50.0)
[2017-01-28 17:18] LABS: HEMOGLOBIN 7.3 g/dL (11.0-16.0)
--- NOTE | 2017-01-28 17:23 | NUR ---
Significant Event: VERY RESTLESS MOST OF THIS SHIFT, HALDOL X2, YELLS ALOT AND LATE IN THE AFTERNOON TRIED TO GET OUT OF BED. HALFWAY CALLED MID DAY AND SAID THAT THIS IS THE WAY THE PT IS THERE TO, YELLS A LOT. AND VERY RESSTLESS. Follow up: MONITOR
[2017-01-28 17:42] LABS: ANION GAP 15.4 (10.0-19.0); CREATININE 1.4 mg/dL (0.6-1.3); POTASSIUM 4.4 mMol/L (3.7-5.1)
--- NOTE | 2017-01-29 04:39 | NUR ---
Significant Event:VSS. WEANED OXYGEN TO RA. PT ALERT & DISORIENTEDX3. MAKES APPRPPRIATE REQUESTS. COOPERATIVE.ROYCE WRIST RESTAINTS.MDEINA INTACT.BED BATH DONE. DENIES PAIN.TURN Q2H. Follow up:MONITOR LABS,CONT W/PLAN OF CARE
[2017-01-29 06:24] LABS: HEMATOCRIT 22.9 % (33.0-50.0)
[2017-01-29 06:26] LABS: HEMOGLOBIN 7.5 g/dL (11.0-16.0)
[2017-01-29 06:41] LABS: ANION GAP 11.9 (10.0-19.0); CREATININE 1.3 mg/dL (0.6-1.3); POTASSIUM 3.9 mMol/L (3.7-5.1)
--- NOTE | 2017-01-29 11:32 | NUR ---
A - NUT F/U. 1-3+ EDEMA. ALZHEIMER'S. LABS: ACCUCHECK REAS->300, GLU 348, BUN/CR 25/1.3, BUN/CR 25/1.3, ALB 3.4, HGB/HCT 7.5/22.9. MEDS: LEVEMIR, ROCEPHIN, PROTONIX, SSI, SOLUMEDROL. DIET: PUREED, HONEY LIQUIDS. NO INTAKE RECORDED YET. NEEDS: [id number] KCAL, 94-117 G PRO D - INADEQUATE NUTRIENT INTAKE R/T DISORIENTATION ON ADMIT, NPO AEB DIET ORDER HX. I - GOAL FOR INTAKE > 50% BY NEXT ASSESSMENT. WILL ADD MAGIC CUP BID AND ENSURE PUDDING @ L. M/E - WILL MONITOR INTAKE F/U IN 3-4 DAYS.
--- NOTE | 2017-01-29 17:23 | NUR ---
Significant Event: QUIET ALL SHIFT UNTILL 1700, RESTRAINTS OFF AND MEDINA DC'D. MED CHANGES. RESTLESS AND YELLING OUT RIGHT NOW. STARTING TO SEE KITTIES AT THE FOOT OF HIS BED. Follow up: MONITOR
[2017-01-30 04:59] LABS: HEMATOCRIT 24.7 % (33.0-50.0); HEMOGLOBIN 8.1 g/dL (11.0-16.0); MCH 32.1 pg (27.0-34.0); MCHC 32.8 gm/dL (32.0-36.5); RBC 2.52 M/uL (3.50-5.50); WBC 4.1 K/uL (4.0-11.0)
[2017-01-30 05:03] LABS: PLATELET COUNT 139 K/uL (150-450)
[2017-01-30 05:08] LABS: ANION GAP 15.7 (10.0-19.0); CALCIUM 8.2 mg/dL (8.5-10.5); CREATININE 1.4 mg/dL (0.6-1.3); POTASSIUM 4.7 mMol/L (3.7-5.1)
[2017-01-30 06:13] LABS: ABSOLUTE NEUTROPHIL CT (ANC) 3.5 K/uL (1.4-9.0); LYMPHOCYTE # 0.5 K/uL (0.8-4.0); LYMPHOCYTE % 12 %; MONOCYTE # 0.1 K/uL (0.0-1.0); SEGMENTED NEUTROPHIL # 3.5 K/uL (1.4-9.0); SEGMENTED NEUTROPHIL % 85 %
--- NOTE | 2017-01-30 07:27 | NUR ---
Significant Event: disoriented but makes appropriate requests. [place]. turn q2h. sat EOB. incont of urine. needs re-orientation and reassurance. denies pain. Follow up:cont to monitor
--- NOTE | 2017-01-30 09:17 | NUR ---
Called [facility] Bed Coord[facility] and no beds available at [facility], they have him on the list. Continue plan of care and dc plan back to [facility] if medical issues stabilize prior to [facility] getting a bed open.
--- NOTE | 2017-01-30 11:47 | NUR ---
Girlfriend/POA not here this morning, pt up in chair, confused. Sharri from [facility] called and I gave her an update of pt condition. They will accept back when ready for discharge.
--- NOTE | 2017-01-30 15:59 | NUR ---
Talked with patient friend/farhat Gomez, she say she talked with Dr Merritt and pt likely will dc back to [facility] on Mon or , she talked with Sharri at [facility] and she is calling social services manager at [facility] to see if they want SNF to transport or have [facility] transport. Denies concerns about him going back to [facility] on discharge. Photographic Press Screwmaker will follow.
--- NOTE | 2017-01-30 17:46 | NUR ---
Significant Event: Patient oriented to self only. Extremely hard of hearing. Able to pivot transfer with PT with max 2 assist today, but fatigues quickly. VSS on RA. Slightly coarse and wheezing. MBS today and now pureed diet with nectar thickened liquids. LFA PIV with 1/2 NS at 50 ml/hr. Will pull at cords/tubes if becomes agitated. Gave Haldol at 1430 and has been more quiet and resting since. Significant other at bedside this afternoon. Accu checks q6h. 1:1 feeder. Follow up: Continue as per plan of care.
--- NOTE | 2017-01-31 05:15 | NUR ---
Significant events: Pt alert, confused and yells out. VSS. No complaints of pain. Very hard of hearing. Haldol given at HS for agitation/restlessness. Rested most of shift after haldol given. Audible wheezes heard throughout shift. Breathing treatments Q4H. On RA. Incontinent of large amounts of urine. No BM. Repositioned Q2H. L) forearm IV infiltrated, new IV to R) wrist.
[2017-01-31 05:57] LABS: BASOPHIL % 0.1 %; HEMATOCRIT 26.3 % (33.0-50.0); HEMOGLOBIN 8.5 g/dL (11.0-16.0); IMMATURE GRANULOCYTE # 0.1 K/uL (0.0-0.3); IMMATURE GRANULOCYTE % 1.6 %; LYMPHOCYTE # 0.6 K/uL (0.8-4.0); LYMPHOCYTE % 7.9 %; MCHC 32.3 gm/dL (32.0-36.5); MCV 98.9 fl (83.0-98.0); MONOCYTE # 0.4 K/uL (0.0-1.0); MONOCYTE % 5.3 %; NEUTROPHIL # (ANC) 5.9 K/uL (1.4-9.0); NEUTROPHIL % 85.1 %; NRBC % 0.9 /100WBC (0-0.00); PLATELET COUNT 165 K/uL (150-450); RBC 2.66 M/uL (3.50-5.50); RDW-CV 17.3 % (11.9-14.6); WBC 6.9 K/uL (4.0-11.0)
[2017-01-31 06:12] LABS: ALBUMIN 3.3 gm/dL (3.5-5.0); ANION GAP 15.2 (10.0-19.0); CALCIUM 8.2 mg/dL (8.5-10.5); CREATININE 1.4 mg/dL (0.6-1.3); MAGNESIUM 2.3 mg/dL (1.8-2.6); PHOSPHORUS 3.4 mg/dL (2.5-4.9); POTASSIUM 4.2 mMol/L (3.7-5.1)
--- NOTE | 2017-01-31 14:45 | NUR ---
Talked to Dr. Merritt this a.m. and she says to plan on transfer back to [place] tomorrow. Several calls with Patel and Diana at [facility] and faxed additional information to them. They call back and can accept patient tomorrow and [facility] Talked with patient's S.O./POA and updated her. She is glad he can go back tomorrow. She would like to ride with the [place] van if they come to get him. Received call from Patel and he has not been able to connect with the [facility], so they will plan on picking patient up. He says they will be here at 1200. Talked to him about Archana riding on the van to pick patient up and he says that would be fine and he will call her regarding the time. Updated Archana regarding call from Patel. Called Dr. Merritt to let her know when SNF will pick patient up. Anticipate transfer to [facility] tomorrow at 1200. Will follow.
--- NOTE | 2017-01-31 16:49 | NUR ---
Significant Event: PT. ALERT TO SELF ONLY, WILL YELL OUT WHEN NEEDING THINGS. PT. GETS UP HEAVY 2 ASSIST TO CHAIR WITH PHYSICAL THERAPY. NO COMPLAINTS OF PAIN, DOES GET SCHEDULED TYLENOL TID. PT. ON PUREE DIET WITH NECTAR LIQUIDS, TAKES MEDS WHOLE. IV ABX CHANGED TO PO, IVF D/C'D. PT. WILL TRANSFER BACK TO [facility] IN [place] @ 1200 TOMORROW. D/C MED TO CHART. INCONTIENT OF BOTH BOWEL/BLADDER. SLIV TO R)WRIST. Follow up: CONTINUE WITH POC.
[2017-01-31 18:28] LABS: HEMATOCRIT 24.2 % (33.0-50.0); HEMOGLOBIN 8.1 g/dL (11.0-16.0)
--- NOTE | 2017-02-01 04:43 | NUR ---
Significant Event: Patient alert to self, disoriented to place and time. VSS on RA. Patient has not slept at all this shift. He is very agitated, yelling out and swearing at staff. Haldolx1 around 2230 with no relief. Patient has had 3 large incontinent voids. Bed alarm on at all times. Patient frequently moves himself to the edge of the bed. No bowel movement this shift. Follow up: To correction today at noon.
[2017-02-01 05:54] LABS: HEMATOCRIT 23.6 % (33.0-50.0)
[2017-02-01 05:55] LABS: HEMOGLOBIN 7.9 g/dL (11.0-16.0)
--- NOTE | 2017-02-01 10:01 | NUR ---
PATIENT IS ALERT TO SELF ONLY, HX: DEMENTIA, ALZHEIMERS, PT. YELLS OUT FOR DRINK OR FOR ROSALIND, CAN BE IMPULSIVE AT TIMES, WILL SIT UP AT SIDE OF BED. VSS ON ROOM AIR. NO COMPLAINTS OF PAIN, DOES GET SCHEDULED 650mG OF TYLENOL TID. PATIENT IS ON A PUREE DIET WITH NECTAR THICKENED LIQUIDS, TAKES MEDS WHOLE WITH WATER, 1:1 FEEDER. PATEINT TRANSFERS WITH A HEAVY 2 ASSIST WITH GAIT BELT/WALKER. IV REMOVED FROM RIGHT WRIST WITHOUT DIFFICULTLY. ORTHOSTATICS NEGATIVE THIS A. PT. IS INCONTIENT OF BOWEL/BLADDER. LS-ARE CLEAR/DIMINISHED, SOMETIMES SLIGHTLY COARSE, DOES HAVE A AUDIBLE EXPIRATORY WHEEZE AT TIMES. 1+EDEMA TO BILATERAL LOWER LEGS. BRUISING TO BILATERAL ARMS, SKIN TEAR TO LEFT ARM IS CLOSED/HEALED. NO BOWEL MOVEMENT SINCE 01/27. PT. TURNS HIMSELF IN BED.
--- NOTE | 2017-02-01 10:30 | NUR ---
Several calls with staff at [facility]. They will pick patient up about 1130 today. Archana BOSS/DIANNA is coming on the van with them to pick him up. Orders faxed. Nurse will call nurse to nurse report. Patient to transfer to [facility] today via [place] van.
== END 2017-02-01 12:06 | DRG 377 ==
LOC: GPCU 23:46
PROVIDERS: Internal Medicine; Internal Medicine Nephrology; ADMIT Internal Medicine
PROC: B246ZZZ Ultrasonography of Right and Left Heart (ICD-10-PCS; principal; 2017-01-26)
PROC: 30233N1 Transfusion of Nonautologous Red Blood Cells into Peripheral Vein, Percutaneous Approach (ICD-10-PCS; principal; 2017-01-26)
DX: K92.2 Gastrointestinal hemorrhage, unspecified (principal); G93.41 Metabolic encephalopathy; J69.0 Pneumonitis due to inhalation of food and vomit; N17.9 Acute kidney failure, unspecified; E87.0 Hyperosmolality and hypernatremia; D62 Acute posthemorrhagic anemia; F05 Delirium due to known physiological condition; J98.11 Atelectasis; E11.22 Type 2 diabetes mellitus with diabetic chronic kidney disease; F03.90 Unspecified dementia, unspecified severity, without behavioral disturbance, psychotic disturbance, mood disturbance, and anxiety; J44.9 Chronic obstructive pulmonary disease, unspecified; E03.9 Hypothyroidism, unspecified; I25.10 Atherosclerotic heart disease of native coronary artery without angina pectoris; Z66 Do not resuscitate; I13.10 Hypertensive heart and chronic kidney disease without heart failure, with stage 1 through stage 4 chronic kidney disease, or unspecified chronic kidney disease; N18.3 Chronic kidney disease, stage 3 (moderate)
CPT/HCPCS: C9113; J0696; J1630; J2060; J2920; J2930; J7030; J7050; J7060; J7120; J7512; P9016; P9047